=== PATIENT | female | born 1945 | race Two or more races ===

== ENCOUNTER → 2019-07-15 | Emergency (ER) | payer BC, OTHER ==
[~2019-07-15] VITALS: Ht 162.6 cm; Wt 68.0 kg
[~2019-07-15] MED LIST: LIDOCAINE 1% HCL (LOCAL ANESTH.) INJ 20ML MDV ONE; TETANUS-DIPTH-ACEL PERTUSSIS 0.5ML SYR Tdap IM ONE; cefTRIAXone 1GM/50ML D5W 50 ML IV ONE; cloNIDine HCL 0.1 MG TAB ONE; cloNIDine HCL 0.1 MG TAB PO ONE; dilTIAZem HCL 180MG ER CAP PO ONE
[2019-07-15] MEDS: LIDOCAINE 1% HCL (LOCAL ANESTH.) INJ 20ML MDV ID ONE ×2 (21:45→22:04)
[2019-07-15 23:35] VITALS: BP 197/69
[2019-07-16 00:01] LABS: Urine WBC None Seen /hpf (0 - 5)
[2019-07-16 00:13] LABS: Urine Bacteria NONE SEEN /hpf (None Seen); Urine Blood 1+ /uL (Negative); Urine Specific Gravity 1.007 (1.001-1.035)
== END | disposition home or self-care (01) ==
LOC: EDBD 18:50 → ER 18:52
DX: S01.01XA Laceration without foreign body of scalp, initial encounter (principal); G80.8 Other cerebral palsy; I10 Essential (primary) hypertension; W01.190A Fall on same level from slipping, tripping and stumbling with subsequent striking against furniture, initial encounter; Y93.9 Activity, unspecified; Y92.89 Other specified places as the place of occurrence of the external cause; Y99.8 Other external cause status
CPT/HCPCS: 12002; 70450; 81001; 90471; 90715; 96365; 99284; J0696; J2001; 93005

== ENCOUNTER 2019-07-27 12:44 | Emergency (ER) | payer MEDICAID ==
[~2019-07-27] VITALS: Ht 152.4 cm; Wt 54.4 kg
[2019-07-27 12:54] VITALS: BP 140/68
== END 2019-07-27 13:40 | disposition home or self-care (01) ==
LOC: ER 12:44
DX: Z48.02 Encounter for removal of sutures (principal); I10 Essential (primary) hypertension